=== PATIENT | male | born 1970 | race Caucasian/White ===

== ENCOUNTER 2017-12-26 09:35 | Emergency (ER) | payer OTHER ==
[2017-12-26] MEDS ORDERED: PROPARACAINE 0.5% OPHTH DROPS 15 ML BTL BOTH EYES STA ×2 (10:19→11:12)
--- NOTE | 2017-12-26 12:44 | ED ---
Eye Problem HPI - General Chief complaint: Eye Problems Stated complaint: CHEMICAL EXPOSURE IN EYES AND NOSE Time Seen by Provider: 12/26/17 10:08 Source: patient Mode of arrival: ambulatory Limitations: no limitations - History of Present Illness Initial comments: This is a 47-year-old male who comes in for chief complaint of chemical exposure to eyes bilaterally, he was sent over from a clinic in [place] who states that at 8 AM this morning he was at work when he was sprayed by 12.5% industrial grade chlorine and his job at [employer]. Patient states that the chlorine was under some pressure and it was not supposed to be. He was not wearing contact lenses or glasses. He immediately irrigated his eye at the job site, then presented to a clinic in [place] where he states that he continued irrigation again for additional 20 minutes. They stated they contact Kin Malin who was awaiting the arrival. Patient was transferred to medical for here by his in his personal vehicle. Upon arrival vital signs stable. - Related Data Home Medications Medication Instructions Recorded Confirmed Calcium Carbonate [Calcium] 600 mg PO DAILY 12/26/17 12/26/17 Cholecalciferol [Vitamin D3] 1,000 unit PO DAILY 12/26/17 12/26/17 Cyanocobalamin (Vitamin B-12) 1,000 mcg PO DAILY 12/26/17 12/26/17 [Vitamin B-12] Metoprolol Succinate [Toprol XL] 25 mg PO DAILY 12/26/17 12/26/17 Whitewood-3 Fatty Acids [Whitewood-3] 1,000 mg PO DAILY 12/26/17 12/26/17 Allergies Allergy/AdvReac Type Severity Reaction Status Date / Time naproxen Allergy Anaphylaxis Verified 12/26/17 11:19 Review of Systems ROS Statement: Those systems with pertinent positive or pertinent negative responses have been documented in the HPI. ROS Other: All systems not noted in ROS Statement are negative. Constitutional: Denies: fever, chills ENT: Denies: hearing loss Respiratory: Denies: dyspnea Cardiovascular: Denies: chest pain Gastrointestinal: Denies: abdominal pain, diarrhea, constipation Skin: Denies: rash Neurological: Denies: headache Past Medical History Past Medical History: Atrial Fibrillation History of Any Multi-Drug Resistant Organisms: None Reported Additional Past Surgical History / Comment(s): cardiac ablation Past Psychological History: No Psychological Hx Reported Smoking Status: Former smoker Past Alcohol Use History: Occasional Past Drug Use History: None Reported General Exam - General Exam Comments Initial Comments: General: The patient is awake and alert, in no distress, and does not appear acutely ill. Eye: Pupils are equal, round and reactive to light, extra-ocular movements are intact. No nystagmus. There is normal conjunctiva bilaterally. No signs of icterus. Ears, nose, mouth and throat: There are moist mucous membranes and no oral lesions. Eye: OD 20/20, OS 20/20 without corrective lenses. Visual field intact to confrontation. Extraocular movements intact. No lesions caused lazo or rashes of external eyes b/l, conjunctival injection b/l/ Pupils +3 mm equal round reactive to light, no APD. Cornea clear, no clouding. Fluorescein exam performed by Dr. Patricio who states that there was no uptake, or corneal defects. In addition Dr. Patricio performed internal eye exam which she noted no abnormalities of the chambers. Neck: The neck is supple, there is no tenderness or JVD. Cardiovascular: There is a regular rate and rhythm. No murmur, rub or gallop is appreciated. Respiratory: Lungs are clear to auscultation, respirations are non-labored, breath sounds are equal. No wheezes, stridor, rales, or rhonchi. Gastrointestinal: Musculoskeletal: Normal ROM, no tenderness. Strength 5/5. Sensation intact. Pulses equal bilaterally 2+. Neurological: A&O x 3. CN II-XII intact, There are no obvious motor or sensory deficits. Coordination appears grossly intact. Speech is normal. Skin: Skin is warm and dry and no rashes or lesions are noted. Psychiatric: Cooperative, appropriate mood & affect, normal judgment. Limitations: no limitations Course Vital Signs 12/26/17 12/26/17 09:41 13:03 Temperature 97.6 F 97.9 F Pulse Rate 64 59 L Respiratory 18 16 Rate Blood Pressure 156/95 153/95 O2 Sat by Pulse 99 98 Oximetry Medical Decision Making - Medical Decision Making This is a 47-year-old male who resents today for chemical exposure to the eyes bilaterally, patient states that he is at work a.m. this morning when he was splashed by 12.5% commercial chlorinein his eye bilaterally. Patient immediately irrigated his eyes and was then transferred to clinic [facility] where they continued irrigation for additional 20 minutes. Before his transferred to [facility]. On the way patient states that he was experiencing blurry vision in his right eye. Upon arrival to [facility]. Ophthalmology was consulted, Dr. Patricio. PH from both eyes obtain. pH of eye b /l >7.5. irrigation was continued until ophthalmology arrived. Dr. Patricio and myself performed a eye examinations revealing, OD 20/20, OS 20/20 without corrective lenses. Visual field intact to confrontation. Extraocular movements intact. No lesions, masses, lazo or rashes of external eyes b/l, conjunctival injection b/l/ Pupils +3 mm equal round reactive to light, no APD. Cornea clear, no clouding. Fluorescein exam performed by Dr. Patricio who states that there was no uptake, or corneal defects. In addition Dr. Patricio performed internal eye exam which she noted no abnormalities of the chambers. Patient was instructed by Dr. Patricio to follow up tomorrow and was prescribed by Dr. Patricio Maxitrol ointment be applied to the eye 4 times a day. Post-examination patient received an additional 1 L per eye of irrigation. Repeat pH testing stable. Patient stated that his eyes were feeling better and continued to improve. the case was discussed with Dr. Denson who at this time this patient is stable for discharge . He was instructed to return to the emergency department if there are any changes to vision or worsening of condition, and to follow-up with Dr. Patricio tomorrow in office. Disposition Clinical Impression: Chemical exposure of eye Disposition: HOME SELF-CARE Condition: Good Instructions: Eye Lubricant (Into the eye), Chemical Eye Lazo (ED) Additional Instructions: Please use medication as discussed. Please follow-up with Dr Patricio tmrw as discussed. Please return to emergency room if the symptoms increase or worsen or for any other concerns. Is patient prescribed a controlled substance at d/c from ED?: No Referrals: Sea [address] DO [Primary Care Provider] - 1-2 days Hank Patricio MD [STAFF PHYSICIAN] - 1-2 days Time of Disposition: 12:54
[2017-12-26 13:04] VITALS: BP 153/95; PULSE 59; RESP 16; TEMP 97.9
--- NOTE | 2017-12-26 17:05 | P.CON ---
Consult Note - . 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 He was not using safety glasses and apparently while working on a low pressure line which had 1200 psi pressure built up and sprayed chlorine in his face. He had some immediate irrigation of the eyes and was transported for further assessment. He notes that the vision expcially in the right was very poor at the time of admission. He was undergoing irrigation with Riki lenses at the time of examination and stated that the vision was improved. Last pH 7.5. Exam: Va w/o glasses 20/20 OU at near pupils: normal External: eyelids unremarkable Conjunctiva: injection 3+ OU Cornea: diffuse SPK without staining AC: D&Q Iris: normal Lens: clear ( undilated ) Vitreous: clear Optic nerve: s/f/p distinct Macula: quiet with FLR normal Vasculature: normal A: 1) keratitis from chemical exposure to chlorine, a base, which can act as an alkali without profound epithelial damage 2) superficial conjunctival injury due to high pressure exposure without gross injury P: 1) continue to irrigate until pH is 7.0 2) add Maxitrol ointment to both eyes 4 times daily 3) return to office for follow up in AM
== END 2017-12-26 13:03 | disposition home or self-care (01) ==
LOC: EC 09:35
DX: Z77.098 Contact with and (suspected) exposure to other hazardous, chiefly nonmedicinal, chemicals (principal); Z87.891 Personal history of nicotine dependence; Z79.899 Other long term (current) drug therapy; Z88.6 Allergy status to analgesic agent
CPT/HCPCS: 99283